=== PATIENT | male | born 1950 | race African-American/Black ===

== ENCOUNTER 2016-06-19 07:44 | Emergency (ER) | payer OTHER ==
[~2016-06-19] VITALS: Ht 172.7 cm; Wt 68.0 kg
[~2016-06-19 07:44] MED LIST: ACETAMINOPHEN325 M1 PO; ACYCLOVIR 200200 MG PO; ACYCLOVIR 400400 MG PO; AZITHROMYCIN 2250 MG PO; BACTRIM 400-801 EACH PO; BACTRIM DS TAB1 EACH PO; CARVEDILOL12.5 MG PO; COLACE100 MG PO; FINASTERIDE5 MG PO; LEVAQUIN 500 M500 MG PO; MEDROLDOSEPACK PO; MYFORTIC PO; MYFORTIC360 MG PO; MYSOLINE50 MG PO; NORCO 5-325 TA1 EACH PO; OSELB75 PO; PREDNISONE 10 M10 M1 PO; PREDNISONE 10 M10 MG PO; PREDNISONE 20 M20 MG PO; PROGRAF1 MG PO; RAPAFLO8 MG PO; TOBRAMYCIN SULFA5 ML IO; TYLENOL EXTRA500 MG PO; VERAPAMIL E.R240 M1 PO; VERAPAMIL ER240 MG PO; VITAMIN D2000 UNIT PO
[2016-06-19] MEDS ORDERED: PROAIR HFA8.5 GM INH (09:02)
[2016-06-19] MEDS ORDERED: PREDNISONE 20 M20 MG PO (09:02)
[2016-06-19] MEDS ORDERED: LEVAQUIN 500 M500 M1 PO (09:02)
== END 2016-06-19 09:33 | disposition home or self-care (01) ==
LOC: ER 07:44
DX: J18.9 Pneumonia, unspecified organism (principal); I12.9 Hypertensive chronic kidney disease with stage 1 through stage 4 chronic kidney disease, or unspecified chronic kidney disease; N18.3 Chronic kidney disease, stage 3 (moderate); Z88.6 Allergy status to analgesic agent; F10.99 Alcohol use, unspecified with unspecified alcohol-induced disorder

== ENCOUNTER 2016-12-07 09:10 | Emergency (ER) | payer OTHER ==
[~2016-12-07] VITALS: Ht 175.3 cm; Wt 71.7 kg
[~2016-12-07 09:10] MED LIST changes: +LEVAQUIN 500 M500 M1 PO; +PROAIR HFA8.5 GM INH
== END 2016-12-07 10:19 | disposition home or self-care (01) ==
LOC: ER 09:10
DX: H11.32 Conjunctival hemorrhage, left eye (principal); D86.0 Sarcoidosis of lung; I12.9 Hypertensive chronic kidney disease with stage 1 through stage 4 chronic kidney disease, or unspecified chronic kidney disease; N18.3 Chronic kidney disease, stage 3 (moderate); F10.99 Alcohol use, unspecified with unspecified alcohol-induced disorder; Z88.6 Allergy status to analgesic agent

== ENCOUNTER 2017-03-22 17:39 | Emergency (ER) | payer OTHER ==
[~2017-03-22] VITALS: Ht 172.7 cm; Wt 73.5 kg
[2017-03-22] MEDS ORDERED: NORCO 5-325 TA1 EACH PO (19:24)
== END 2017-03-22 19:48 | disposition home or self-care (01) ==
LOC: ER 17:39
DX: M79.671 Pain in right foot (principal); I12.9 Hypertensive chronic kidney disease with stage 1 through stage 4 chronic kidney disease, or unspecified chronic kidney disease; N18.3 Chronic kidney disease, stage 3 (moderate); D86.9 Sarcoidosis, unspecified; F10.99 Alcohol use, unspecified with unspecified alcohol-induced disorder; Z88.6 Allergy status to analgesic agent

== ENCOUNTER 2017-07-06 14:03 | Emergency (ER) | payer OTHER ==
[~2017-07-06] VITALS: Ht 172.7 cm; Wt 71.7 kg
[2017-07-06] MEDS ORDERED: BACTRIM DS TAB1 EACH PO (14:33)
[2017-07-06 15:16] LABS: URINE BILIRUBIN NEGATIVE (Negative); URINE BLOOD NEGATIVE (Negative); URINE CLARITY CLEAR; URINE COLOR YELLOW; URINE GLUCOSE-RANDOM* NEGATIVE (Negative); URINE KETONES NEGATIVE (Negative); URINE NITRITE-REFLEX NEGATIVE (Negative); URINE PROTEIN (DIPSTICK) 1+ (Negative); URINE SPECIFIC GRAVITY 1.025 (1.005-1.035); URINE UROBILINOGEN 0.2 E.U./dl (0.2-1.0)
[2017-07-06 15:28] LABS: URINE LEUKOCYTES-REFLEX TRACE (Negative)
[2017-07-06 15:29] LABS: HEMATOCRIT 27.5 % (42.0-52.0); HEMOGLOBIN 8.8 gm/dL (14.0-18.0); MCH 25.4 pg (26.0-34.0); MCV 79.2 fL (80.0-100.0); PLATELET COUNT 139 thou/uL (150-400); RBC 3.48 mil/uL (4.50-6.00); RDW 18.4 % (10.5-14.5); WBC 2.5 thou/uL (4.0-11.0)
[2017-07-06 15:29] LABS: SQUAMOUS 0-3 Few /LPF (0-3)
[2017-07-06 15:30] LABS: BACTERIA-REFLEX 1-9 Few /HPF (None Seen); CASTS None Seen /LPF (None Seen); CRYSTALS None Seen /LPF (None Seen); URINE RBC None Seen /HPF (0-2); URINE WBC-REFLEX 0-5 Rare /HPF (0-5)
[2017-07-06 15:40] LABS: CALCIUM 8.5 mg/dL (8.5-10.1); POTASSIUM 4.6 mmol/L (3.5-5.1)
[2017-07-06 15:52] LABS: METAMYELOCYTES 2 %; PLATELET ESTIMATE SLIGHTLY DECREASED
[2017-07-06 15:53] LABS: ANISOCYTOSIS 1+; LARGE PLATELETS OCCASIONAL; MICROCYTES 1+
[2017-07-06 15:54] LABS: HYPOCHROMASIA 1+
[2017-07-06 18:04] VITALS: BP 133/79
[2017-09-28] MEDS ORDERED: AZITHROMYCIN 2250 MG PO (23:47)
[2017-11-15] MEDS ORDERED: CARVEDILOL25 MG PO (12:39)
[2017-11-15] MEDS ORDERED: IMDUR 30 MG TAB30 M1 PO (12:39)
[2017-11-15] MEDS ORDERED: HYDRALAZINE 5050 MG PO (12:39)
[2017-11-15] MEDS ORDERED: DEMADEX20 MG PO (12:39)
== END 2017-07-06 18:05 | disposition home or self-care (01) ==
LOC: ER 14:03
PROVIDERS: Emergency Medicine
DX: K56.600 Partial intestinal obstruction, unspecified as to cause (principal); I12.9 Hypertensive chronic kidney disease with stage 1 through stage 4 chronic kidney disease, or unspecified chronic kidney disease; N18.3 Chronic kidney disease, stage 3 (moderate); Z88.6 Allergy status to analgesic agent

== ENCOUNTER 2018-01-25 00:58 | Inpatient (IN) | payer OTHER ==
[~2018-01-25] VITALS: Ht 175.3 cm; Wt 75.9 kg
[2018-01-25] VITALS (17 sets, daily range): BP systolic 55–136; BP diastolic 21–93
--- NOTE | ~2018-01-25 | EKG ---
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1950 Requested By: Booker Llanes Order Number: [id number] MD: Measurements Intervals [place] Rate: 127 P: MA: QRS: -50 QRSD: 109 T: 98 QT: 332 QTc: 483 Interpretive Statements Junctional tachycardia Left anterior fascicular block Probable anteroseptal infarct, old Nonspecific T abnormalities, lateral leads Compared to ECG 01/25/2018 01:06:41 Junctional tachycardia now present Left anterior fascicular block now present Myocardial infarct finding now present T-wave abnormality now present Sinus rhythm no longer present [email or web address] By: 1456 1456 [place], [place] /KARTHIKEYAN
--- NOTE | ~2018-01-25 | EKG ---
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
--- NOTE | ~2018-01-25 | HC ---
[facility] [place] [address] CONSULTATION Name: MARK GALINDO Room #: 239-P [facility] IN M.R.#: [id number] Admission: 01/25/18 Attend Phys: Jonny Shaikh MD Discharge: Date of : 50 Report #: [id number] THIS REPORT FOR: //name// CC: Ruddy GONZALES unknown Jonny Llanes TYPE OF REPORT: Pulmonary critical care consultation. REFERRING PHYSICIAN: Dr. Yony Hernandez. REASON FOR REFERRAL: Acute respiratory failure. HISTORY OF PRESENT ILLNESS: The patient is a 68-year-old -Cymro male who presents to the Emergency Room with dyspnea. He was in severe distress when he arrived. He was subsequently intubated. A pulmonary consultation was requested. The patient has a complicated history. 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 He has chronic kidney disease, stage 5. He is mainly followed at [facility] Nephrology Department. He also has followed at [facility] Pulmonary Department once a year. He has had several hospitalizations over the past year at [facility], last one being in November of 2017 for back pain. He was found to be in heart failure. He was in his usual state of health until about one day prior to presentation. The patient complained he was not feeling well. He felt weak, chills and diarrhea. He complained of muscle aches and lack of appetite. The patient was felt to be febrile along with chills. A week ago, he underwent hemorrhoidectomy with a wart removal at [facility]. Currently, he is intubated, profoundly hypotensive and hypoxic. 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 PAST SURGICAL HISTORY: As mentioned above including bilateral herniorrhaphy. [facility] [address] [place] [address] CONSULTATION Name: GALINDOMARK Room #: 239-P [facility] IN M.R.#: [id number] Admission: 01/25/18 Attend Phys: Jonny Shaikh MD Discharge: Date of : 50 Report #: [id number] ALLERGIES: None but ASPIRIN causes interaction with some of the antirejection medications along with ibuprofen, which also interacts with antirejection medications. CURRENT MEDICATIONS: From home included Zithromax, silodosin 1 tablet once a day, Bactrim-DS 1 tablet p.o. every other day, tacrolimus 2.5 caps p.o. b.i.d., hydrocodone 5/325 every 4 hours p.r.n., acyclovir 200 mg p.o. b.i.d. and prednisone 10 mg once a day. FAMILY HISTORY: Noncontributory. SOCIAL HISTORY: The patient denies any tobacco use. He does drink socially. He is . REVIEW OF SYSTEMS: Deferred as the patient is intubated. PHYSICAL EXAMINATION: GENERAL: He appears to be moderately distressed, tachypneic, on a mechanical ventilator. VITAL SIGNS: Temperature is 101.7 degrees Fahrenheit, pulse is 100, respiratory rate is 24, blood pressure remains very labile at 98/72 mmHg and saturation 99%. HEENT: Normocephalic and atraumatic. He is orally intubated. NECK: Supple, without any lymphadenopathy or thyromegaly. CHEST: Breath sounds are coarse bilaterally. No wheezes. CARDIOVASCULAR: No obvious murmurs or gallop. Pulses are decreased bilaterally. GENITOURINARY: Deferred. RECTAL: Deferred. ABDOMEN: Soft. No masses felt. GENITOURINARY: Deferred. RECTAL: Deferred. EXTREMITIES: No cyanosis, clubbing or edema. NEUROLOGICAL: Deferred as the patient is sedated. RADIOLOGICAL DATA: Portable chest x-ray on admission following intubation showed a mild right upper lobe infiltrates and mild interstitial changes are seen bilaterally. Previous CT chest angiogram noted showing thickened bronchial airways and mild interstitial changes. EKG shows no acute ischemic changes. A 2D echocardiogram revealed grossly normal left ventricular function, ejection fraction 45%, right ventricle grossly normal, dilated left and right atrium, mild aortic regurgitation. Pulmonary artery pressure around 40-45 mmHg. No pericardial effusion. LABORATORY DATA: Procalcitonin level 141. Lactic acid is 6.3. Sodium 138, potassium 4.1, chloride 104, CO2 is 15, creatinine is 6.3 and BUN is 80. Liver enzymes are moderately abnormal. WBC was 600; hemoglobin 7.2; hematocrit 22.[address] [address] CONSULTATION Name: MARK GALINDO Room #: 239-[facility] IN M.R.#: [id number] Admission: 01/25/18 Attend Phys: Jonny Shaikh MD Discharge: Date of : 50 Report #: [id number] and platelets are 90,000. Albumin 1.8. Troponin 0.3. Initial arterial blood gas revealed pH 7.32, pCO2 of 24 and pO2 249. IMPRESSION: 1. Acute hypoxic respiratory failure in this 68-year-old -Cymro male with a history of bilateral lung transplantation, history of sarcoidosis stage 4. Chest x-ray on admission revealed a right upper lobe infiltrates. He is now profoundly hypotensive. Procalcitonin level was markedly elevated along with marked metabolic acidosis. He has chronic kidney disease at stage 5. Suspect very severe sepsis, presumably due to pneumonia, though presentation is disproportionate with profound hypotension. Perhaps there may be other confounding factors contributing to the critical illness. Notably, the patient is immunosuppressed. Cannot rule out other opportunistic infection. The patient has also been on chronic corticosteroids, which may suggest adrenal insufficiency resulting in severe circulatory shock. Other source for severe sepsis cannot be ruled out including intra-abdominal processes. He was recently admitted for small-bowel obstruction. 2. Right upper lobe infiltrate, presumed pneumonia, possible aspiration. 3. Acute kidney injury/chronic kidney disease. Over the past several hours, he has been oliguric. 4. Profound metabolic acidosis due to shock. 5. Profound neutropenia, presumably due to severe infection and sepsis, severe protein-calorie malnutrition. 6. Pulmonary hypertension due to above processes. 7. Cardiomyopathy, ejection fraction 45%. 8. History of anemia. 9. History of hypertension. DISCUSSION AND RECOMMENDATIONS: Over the course of the day, the patient has been very unstable. He remained quite hypotensive requiring 3 multiple vasopressors. He remains progressively acidotic. He is oliguric. The patient had at least to cardiac events so far resulting in asystole x 2. He was resuscitated. He appeared to respond to epinephrine. The patient remained unstable, now with progressive hypoxia along with hypercapnia. Chest x-ray now shows dense right-sided airspace infiltrates occupying approximately 70% of the right lung, small infiltrates in the left lung field. CT of the abdomen and pelvis, CT head was also performed. Results are pending. Over the course of time, the patient's hypoxia has progressively worsened on FiO2 100%, pO2 is now only 45 mmHg. He remained acidotic with pH of 7.14. The patient remains on multiple vasopressors. He remains oliguric. The patient also received stress dose hydrocortisone since admission. [address] [address] CONSULTATION Name: MARK GALINDO Room #: 239-[facility] IN M.R.#: [id number] Admission: 01/25/18 Attend Phys: Jonny Shaikh MD Discharge: Date of : 50 Report #: [id number] Suspect profound sepsis from presumably pneumonia. Unclear if there is other ongoing process such as intra-abdominal infection or ischemia. This is now more than 11 years post-lung transplantation and is unclear if the transplanted lung is now rejecting. With the patient's severe comorbid conditions as mentioned above including renal failure, now with profound sepsis and shock with worsening multisystem organ failure, overall prognosis felt to be grim. We will continue supportive care, vasopressors, mechanical ventilator support and broad-spectrum antibiotics. At this time, the patient is too unstable for transfer to a tertiary facility such as ECMO. We will discuss with family. Thank you for this consultation. CRITICAL CARE TIME: One hour and additional 30 minutes. <ELECTRONICALLY SIGNED> By: Booker Llanes MD 01/26/18 1656 1711 0540 Booker Llanes MD /nt
--- NOTE | ~2018-01-25 | HC ---
[facility] [place] [address] CONSULTATION Name: MARK GALINDO Room #: 239-P ADM IN M.R.#: [id number] Admission: 01/25/18 Attend Phys: Jonny Shaikh MD Discharge: Date of : 50 Report #: [id number] THIS REPORT FOR: //name// CC: Ruddy Garzon FAM unknown Jonny Llanes DATE OF SERVICE: 01/25/2018 REASON FOR CONSULTATION: Chronic kidney disease and septic shock. HISTORY OF PRESENT ILLNESS: The patient is known to our service from a previous hospitalization here in November of this year. He is known to have a lung transplant since I believe 2006 due to sarcoidosis. He has chronic calcineurin toxicity with a baseline creatinine that was about 5 two months ago. He was slated for followup in our office for preparation for end-stage renal disease therapy. It is unclear as to whether he followed up or not. The patient had been doing reasonably well apparently in the hospital at [facility] for some treatment for genital warts and then was doing reasonably well. Did not go to work, had chills, fever, poor appetite, became lethargic, mental status changes, came to the Emergency Room here overnight and was found to have extreme leukopenia requiring aggressive treatment for septic shock, very low blood pressures, etc., quite neutropenic and his serum creatinine, which had been 5.0 at discharge 2 months ago was up to 6.3 and now 5.8 with decreased urine output. PAST MEDICAL HISTORY: He had the lung transplant as mentioned, chronic kidney disease as mentioned, on immunosuppressives, some history of small-bowel obstruction in the past. FAMILY HISTORY: Positive for hypertension. SOCIAL HISTORY: Apparently not a cigarette smoker or drug user. REVIEW OF SYSTEMS: Cannot be taken due to the patient being comatose on the ventilator, intubated in the ICU. PHYSICAL EXAMINATION: GENERAL: This is an ill-appearing gentleman on the ventilator, unresponsive. SKIN: Warm and dry. SKELETAL: Shows him to be well developed, well nourished. HEENT: There is some hemorrhage in his right eye. Endotracheal tube in place. NECK: Supple. CHEST: Shows rhonchi with occasional wheeze more on the right than the left. [facility] [address] [place] [address] CONSULTATION Name: MARK GALINDO Room #: 239-[facility] IN .R.#: [id number] Admission: 01/25/18 Attend Phys: Jonny Shaikh MD Discharge: Date of : 50 Report #: [id number] HEART: Regular, distant. ABDOMEN: Soft, nontender, quiet. EXTREMITIES: Show no edema. They are warm. Pulses diminished. LABORATORY DATA: Hemoglobin 7.6, white count is only 0.5 and he has got only 12% segs on that, platelets 95,000. INR 1.3. Sodium is 138, potassium 5.2, chloride 106, bicarbonate 18, creatinine 5.8, BUN 77. ASSESSMENT: 1. Septic shock. Immunocompromised neutropenic patient with fever and septic shock, being aggressively treated with IV fluids, on multiple high dose pressors with inadequate blood pressure and inadequate systemic perfusion. Due to the inadequate blood pressure and decreased urine output, survival will be somewhat difficult. We will certainly treat aggressively for septic shock. CRRT may or may not be introduced depending on if we can stabilize his condition otherwise with fluids, etc. 2. Neutropenia with fever and the patient immunocompromised from a lung transplant on 2 drug immunosuppression. 3. History of lung transplant in 2006. 4. Chronic kidney disease stage 5 with previous advice for preparation for end-stage renal disease treatment thought due to calcineurin toxicity. 5. Recent procedures for genital warts. <ELECTRONICALLY SIGNED> By: Art Rivas MD 01/26/18 1159 0844 1052 Art Rivas MD /nt
--- NOTE | ~2018-01-25 | 2DMMODE ---
[facility] [place] [address] 2 D/M-MODE ECHOCARDIOGRAM Name: MARK GALINDO Room #: 239-P [facility] IN .R.#: [id number] Admission: 01/25/18 Attend Phys: Jonny Shaikh MD Discharge: Date of : 50 Date of Service: 01/25/18 1222 Report #: [id number] THIS REPORT FOR: //name// APPROVED REPORT Study performed: 01/25/2018 07:57:17 EXAM: Limited 2D, Doppler, and color-flow Echocardiogram Patient Location: ER BSA: 1.81 HR: 103 bpm BP: 61/39 mmHg Rhythm: Tachycardia Indications Short of breath. Hx: CHF, PHTN, HTN, sarcoidosis, lung transplant. (Complete echo done 11/12/17) Aortic Valve AoV Peak Chato.: 1.54 m/s AO Peak Gr.: 9.46 mmHg Mitral Valve E/A Ratio: 2.4 MV Decel. Time: 142.72 ms MV E Max Chato.: 1.23 m/s MV A Chato.: 0.52 m/s MV PHT: 41.39 ms IVRT: 71.51 ms Tricuspid Valve TR Peak Chato.: 2.77 m/s RAP Estimate: 10.00 mmHg TR Peak Gr.: 30.70 mmHg PA Pressure: 41.00 mmHg Left Ventricle Left ventricular size appears to be grossly within normal dimensions Left ventricular systolic function is mild to moderately decreased. LVEF is 45%. Severe diastolic dysfunction is present (restrictive filling). Right Ventricle Right ventricle is grossly normal in size. [facility] [address] [place] [address] 2 D/M-MODE ECHOCARDIOGRAM Name: MARK GALINDO Room #: 239-P [facility] IN .R.#: [id number] Admission: 01/25/18 Attend Phys: Jonny Shaikh MD Discharge: Date of : 50 Date of Service: 01/25/18 1222 Report #: [id number] Left atrium is dilated. Right atrium is dilated. Aortic Valve The Aortic valve is sclerotic. Mild aortic regurgitation. There is no aortic valvular stenosis. Mitral Valve The mitral valve is normal in structure. Mild mitral regurgitation. Tricuspid Valve The tricuspid valve is normal in structure. Mild to moderate tricuspid regurgitation. Estimated PAP is 40-45mmHg. Great Vessels IVC is dilated and collapses >50% with inspiration. Pericardium There is no pericardial effusion. <Conclusion> Left ventricular size appears to be grossly within normal dimensions Left ventricular systolic function is mild to moderately decreased. LVEF is 45%. Right ventricle is grossly normal in size. Left atrium is dilated. Right atrium is dilated. The Aortic valve is sclerotic. Mild aortic regurgitation. The mitral valve is normal in structure. Mild mitral regurgitation. The tricuspid valve is normal in structure. Mild to moderate tricuspid regurgitation. Estimated PAP is 40-45mmHg. There is no pericardial effusion. <ELECTRONICALLY SIGNED> By: Jaleel Cullen MD 01/25/181221 21 21 Jaleel Cullen MD /INF
--- NOTE | ~2018-01-25 | HC ---
[facility] [address] [address] CONSULTATION Name: MARK GALINDO Room #: 239-P [facility] IN M.R.#: [id number] Admission: 01/25/18 Attend Phys: Jonny Shaikh MD Discharge: Date of : 50 Report #: [id number] THIS REPORT FOR: //name// CC: Ruddy Garzon FAM unknown Jonny Llanes DATE OF SERVICE: 01/25/2018 TYPE OF REPORT: Infectious diseases consultation. REASON FOR CONSULTATION: I was asked to evaluate concerning septic shock and respiratory failure in the setting of lung transplantation. HISTORY OF PRESENT ILLNESS: The patient was a 68-year old 10 years out from bilateral lung transplant on 3-drug immunosuppression. He has been doing well with his transplant with no recent episodes of rejection or opportunistic infections. Six days ago, underwent hemorrhoidectomy at [facility]. Actually doing reasonably well following this with pain controlled. He has had persistent diarrhea since then, however. With this, he has had anorexia without significant abdominal pain. No report of blood. No nausea or vomiting. He has had no cough or sputum production. No pleuritic chest pain. He has had decreased urine output. It is noted that he has chronic kidney disease with a baseline creatinine around 4. He had been seen by the Nephrology service. He has had no change in his immunosuppression. No recent travel. Other family members have been without illness. The patient noted yesterday morning, the patient was sleeping more than normal. He did awaken and was stating that he just did not feel well. He spent most of the day in bed. Subsequently, later on that evening, he began to become more short of breath, was brought into the Emergency Room where he was found to be hypoxic. Developed respiratory failure, was intubated, placed on mechanical ventilation. Minimal tracheal secretions were identified. Cultures were obtained. He did have some incontinence of stool prior to his arrival. REVIEW OF SYSTEMS: The patient was intubated and sedated, on vasopressors, unable to give any details. I did discuss history with nursing staff as well as the patient's at the bedside. She was able to give his history, noting no other positive review of systems from 10-point review. PAST MEDICAL HISTORY: Stage 4 sarcoidosis following bilateral lung transplant in 2006, hypertension, bilateral herniorrhaphy, chronic kidney disease, DVT, congestive heart failure, pulmonary hypertension, mitral regurgitation, known cardiomyopathy, microcytic anemia, osteoporosis with compression fractures, humerus fracture and recent small-bowel obstruction several months ago. [address] [address] CONSULTATION Name: MARK GALINDO Room #: 239-P [facility] IN [facility]#: [id number] Admission: 01/25/18 Attend Phys: Jonny Shaikh MD Discharge: Date of : 50 Report #: [id number] ALLERGIES: ASPIRIN and IBUPROFEN. MEDICATIONS: A 10 mg of prednisone a day, tacrolimus, Rapaflo, acyclovir, Bactrim, azithromycin, vitamin D and hydrocodone. FAMILY HISTORY: Noncontributory. SOCIAL HISTORY: Nonsmoker. No significant alcohol intake. PHYSICAL EXAMINATION: VITAL SIGNS: The patient was on 3 vasopressors including dopamine, Levophed and vasopressin, FiO2 100%. He was unarousable. Heart rate 107 and blood pressure 80/50 with a MAP of 49. Minimal urine output. Right subclavian catheter recently placed was unremarkable. GENERAL: He was orally intubated with an OG tube in place. Indwelling Hernandez catheter. SKIN: No rash or decubiti. HEENT: Eyes, mild conjunctivitis in the right. Naris unremarkable. Mouth unremarkable with no lesions. NECK: Supple, with no mass, adenopathy or JVD. LUNGS: Coarse bilaterally. Most predominantly with consolidation on the right posterior chest. HEART: Tachycardic and regular. No appreciable murmur, gallop or rub. ABDOMEN: Soft. No hepatosplenomegaly or mass appreciated. GENITOURINARY: External genitalia with indwelling Hernandez catheter. Had fullness in the left inguinal region. RECTAL: With shallow ulcerations from his hemorrhoidectomy. No fluctuance or abscess palpable. EXTREMITIES: Without edema. NEUROLOGICAL: The patient did move all extremities and withdrawal to pain. RADIOLOGICAL DATA: Chest x-ray with right lung upper lobe infiltrate. LABORATORY DATA: Lactate 2.4. Procalcitonin 167. ABG on 80%, FiO2 showed a pO2 of 81, pCO2 of 43, pH 7.18 and bicarbonate is 16. Sodium 138, potassium 5.2, bicarbonate 18 and creatinine 5.8. Hemoglobin 7.6; platelet count 95,000 and WBC 0.5. INR 1.3. Troponin 0.3. Urinalysis pending. Blood cultures pending. Sputum culture pending. Urine antigens pending. IMPRESSION: 1. A 68-year old with septic shock, respiratory failure, acute renal failure, oliguric. 2. Pancytopenia with metabolic acidosis. 3. Suspect opportunistic versus aspiration-type pneumonia. Still possible healthcare-associated pneumonia following his surgical procedure. [facility] [address] [place] [address] CONSULTATION Name: MARK GALINDO Room #: 239-P [facility] IN Willie.#: [id number] Admission: 01/25/18 Attend Phys: Jonny Shaikh MD Discharge: Date of : 50 Report #: [id number] 4. Diarrhea, ongoing for the last week. Likely a component to his dehydration and acute renal failure. Cause of which is yet to be determined whether bacterial, parasitic, opportunistic infection or Clostridium difficile colitis related to his antibiotics given at the time of his surgery. 5. Recent hemorrhoidectomy, possible surgical site infection, although could find no purulent drainage on examination. 6. Pancytopenia with profound neutropenia contributing likely due to profound sepsis. 7. Ytcnz-hv-sjoygtj kidney disease with oliguria. 8. Encephalopathy, toxic metabolic in nature. 9. Underlying sarcoidosis. RECOMMENDATIONS: We will continue full ICU support for septic shock. Await echocardiogram. CT scan of the chest, abdomen and pelvis. Await blood, urine and sputum cultures. Check stool for bacterial pathogens, ova and parasite and C. difficile. Obtain serologic studies and evaluate pneumonia for virus, bacteria, fungus and AFB. We will continue with broad antibiotic coverage for virus, bacteria and fungus. Give Neupogen. Await imaging studies and initial response to fluids and vasopressors. Have adjusted his antibiotics for his renal failure. May need to consider a bronchoscopy if pulmonary infiltrates progress. [place] is very poor given his profound immunosuppression and multiorgan system failure. I have discussed with nursing staff, Nephrology and the patient's family. <ELECTRONICALLY SIGNED> By: Ruddy Garzon MD 01/26/18 1415 [id number] Ruddy Garzon MD /nt
--- NOTE | ~2018-01-25 | EKG ---
[place] [address] 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 : 1950 Requested By: Booker Llanes Order Number: [id number] MD: Enrique Nguyen Measurements Intervals [place] Rate: 127 P: DC: QRS: -50 QRSD: 109 T: 98 QT: 332 QTc: 483 Interpretive Statements Supraventricular tachycardia Left anterior fascicular block Probable anteroseptal infarct, old Nonspecific ST segment abnormality Compared to ECG 01/25/2018 01:06:41 Septal Q waves are more prominent Electronically Signed On 01-25-2018 17:09:39 CDT by Enrique Nguyen [email or web address] <ELECTRONICALLY SIGNED> By: Enrique Nguyen MD, [facility] 01/25/18 1709 1456 [id number] Enrique Nguyen MD, [facility] /EPI
--- NOTE | ~2018-01-25 | EKG ---
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: Carie ROGERS : 1950 Requested By: Jonny Shaikh Order Number: [id number] MD: Enrique Nguyen Measurements Intervals [place] Rate: 137 P: [place]: QRS: -37 QRSD: 102 T: 94 QT: 330 QTc: 499 Interpretive Statements Supraventricular tachycardia Left axis deviation Nonspecific ST segment abnormality Borderline prolonged QT interval Compared to ECG 01/25/2018 01:06:41 Supraventricular tachycardia is now present Electronically Signed On 01-25-2018 17:06:30 CDT by Enrique Nguyen [email or web address] <ELECTRONICALLY SIGNED> By: Enrique Nguyen MD, [facility] 01/25/18 [id number] 1144 Enrique Nguyen MD, [facility] /EPI
[~2018-01-25 00:58] MED LIST changes: +CARVEDILOL25 MG PO; +DEMADEX20 MG PO; +HYDRALAZINE 5050 MG PO; +IMDUR 30 MG TAB30 M1 PO
[2018-01-25 01:25] LABS: BE(vivo) -12.1 mmol/L (-2 to +3); HCO3 12.6 mmol/L (22.0-26.0); PCO2 24.6 mmHg (35.0-45.0); PO2 249.2 mmHg (80.0-100.0); pH 7.326 (7.360-7.450); sO2 99.5 % (92.0-98.0)
[2018-01-25 01:37] LABS: HEMATOCRIT 22.6 % (42.0-52.0); HEMOGLOBIN 7.2 gm/dL (14.0-18.0); MCH 25.9 pg (26.0-34.0); PLATELET COUNT 90 thou/uL (150-400); RBC 2.78 mil/uL (4.50-6.00); RDW 17.4 % (10.5-14.5)
[2018-01-25 01:44] LABS: CREATININE 6.3 mg/dL (0.7-1.3); POTASSIUM 4.1 mmol/L (3.5-5.1)
[2018-01-25] MEDS ORDERED: PROGRAF1 MG PO ×2 (01:45)
[2018-01-25 01:46] LABS: WBC 0.6 thou/uL (4.0-11.0)
[2018-01-25] MEDS ORDERED: HYDROCODON-ACE1 EAC7 PO (01:53)
[2018-01-25] MEDS ORDERED: ALFUZOSIN HCL10 MG PO (01:54)
[2018-01-25 02:23] LABS: ABSOLUTE NEUTROPHILS 0.1 thou/uL (1.4-8.2); ANISOCYTOSIS 1+; LARGE PLATELETS SEVERAL; PLATELET ESTIMATE DECREASED
[2018-01-25 03:18] LABS: BE(vivo) -13.6 mmol/L (-2 to +3); PCO2 33.2 mmHg (35.0-45.0); PO2 157.3 mmHg (80.0-100.0); sO2 98.7 % (92.0-98.0)
[2018-01-25 03:19] LABS: pH 7.212 (7.360-7.450)
[2018-01-25 04:21] LABS: APTT 37.1 Seconds (24.5-32.8); FIBRINOGEN 406.5 mg/dL (210-360); INR 1.3; PROTIME 13.4 Seconds (9.3-11.4)
[2018-01-25 05:47] LABS: MCHC 31.8 g/dL (28.0-37.0); RDW 18.3 % (10.5-14.5)
[2018-01-25 05:49] LABS: HEMOGLOBIN 7.6 gm/dL (14.0-18.0); MCV 81.8 fL (80.0-100.0); RBC 2.93 mil/uL (4.50-6.00)
[2018-01-25 05:54] LABS: CALCIUM 7.2 mg/dL (8.5-10.1); CREATININE 5.8 mg/dL (0.7-1.3); WBC 0.5 thou/uL (4.0-11.0)
[2018-01-25 05:55] LABS: PLATELET COUNT 95 thou/uL (150-400)
[2018-01-25 05:57] LABS: POTASSIUM 5.2 mmol/L (3.5-5.1)
[2018-01-25 05:58] LABS: BE(vivo) -11.6 mmol/L (-2 to +3); PCO2 43.8 mmHg (35.0-45.0)
[2018-01-25 08:53] LABS: ANISOCYTOSIS 2+; HYPOCHROMASIA 1+; LARGE PLATELETS MANY; METAMYELOCYTES 4 %; MYELOCYTES 1 %; NUCLEATED RBCS 3 /100WBC; PLATELET ESTIMATE DECREASED
[2018-01-25 09:38] LABS: BE(vivo) -12.8 mmol/L (-2 to +3); HCO3 15.4 mmol/L (22.0-26.0); PCO2 46.4 mmHg (35.0-45.0); sO2 73.7 % (92.0-98.0)
[2018-01-25 09:39] LABS: PO2 50.1 mmHg (80.0-100.0)
[2018-01-25 11:31] LABS: BE(vivo) -6.3 mmol/L (-2 to +3); PCO2 60.5 mmHg (35.0-45.0); PO2 68.7 mmHg (80.0-100.0); sO2 88.6 % (92.0-98.0)
[2018-01-25 11:32] LABS: pH 7.178 (7.360-7.450)
[2018-01-25 12:05] LABS: HEMOGLOBIN 7.2 gm/dL (14.0-18.0); MCHC 31.9 g/dL (28.0-37.0); MCV 81.7 fL (80.0-100.0); RBC 2.76 mil/uL (4.50-6.00)
[2018-01-25 12:07] LABS: HEMATOCRIT 22.5 % (42.0-52.0); MCH 26.1 pg (26.0-34.0); RDW 18.1 % (10.5-14.5)
[2018-01-25 12:10] LABS: CALCIUM 7.9 mg/dL (8.5-10.1); CREATININE 5.6 mg/dL (0.7-1.3); POTASSIUM 5.2 mmol/L (3.5-5.1)
[2018-01-25 12:11] LABS: WBC 0.8 thou/uL (4.0-11.0)
[2018-01-25 12:18] LABS: ALBUMIN 1.8 g/dL (3.4-5.0); TOTAL BILIRUBIN 0.8 mg/dL (<0.1-1.0); TOTAL PROTEIN 3.9 g/dL (6.4-8.2)
[2018-01-25 12:23] LABS: TROPONIN-I 0.84 ng/mL (<0.06)
[2018-01-25 13:01] LABS: HCO3 19.6 mmol/L (22.0-26.0); PCO2 44.6 mmHg (35.0-45.0); sO2 83.8 % (92.0-98.0)
[2018-01-25 13:02] LABS: PO2 54.8 mmHg (80.0-100.0); pH 7.261 (7.360-7.450)
[2018-01-25 15:05] LABS: BE(vivo) -9.8 mmol/L (-2 to +3); HCO3 18.6 mmol/L (22.0-26.0); PCO2 55.3 mmHg (35.0-45.0); sO2 78.4 % (92.0-98.0)
[2018-01-25 15:06] LABS: PO2 54.9 mmHg (80.0-100.0); pH 7.144 (7.360-7.450)
[2018-01-25 15:10] LABS: HEMATOCRIT 22.5 % (42.0-52.0); HEMOGLOBIN 7.1 gm/dL (14.0-18.0); MCH 25.8 pg (26.0-34.0); MCHC 31.6 g/dL (28.0-37.0); MCV 81.9 fL (80.0-100.0); RBC 2.75 mil/uL (4.50-6.00); RDW 18.3 % (10.5-14.5)
[2018-01-25 15:19] LABS: CALCIUM 6.9 mg/dL (8.5-10.1); CREATININE 6.1 mg/dL (0.7-1.3); POTASSIUM 4.8 mmol/L (3.5-5.1); WBC 1.1 thou/uL (4.0-11.0)
[2018-01-25 15:27] LABS: ALBUMIN 1.6 g/dL (3.4-5.0); TOTAL BILIRUBIN 1.1 mg/dL (<0.1-1.0); TOTAL PROTEIN 3.5 g/dL (6.4-8.2)
[2018-01-25 15:29] LABS: TROPONIN-I 1.01 ng/mL (<0.06)
[2018-01-25 15:34] LABS: FIBRINOGEN 147.5 mg/dL (210-360); PROTIME 32.4 Seconds (9.3-11.4)
[2018-01-25 15:36] LABS: APTT 68.1 Seconds (24.5-32.8); INR 3.2
[2018-01-25 16:05] LABS: BE(vivo) -8.3 mmol/L (-2 to +3); HCO3 18.9 mmol/L (22.0-26.0); PCO2 47.4 mmHg (35.0-45.0); sO2 72.1 % (92.0-98.0)
[2018-01-25 16:06] LABS: PO2 45.3 mmHg (80.0-100.0); pH 7.218 (7.360-7.450)
[2018-01-25 16:12] LABS: ALBUMIN 1.6 g/dL (3.4-5.0); DIRECT BILIRUBIN 0.8 mg/dL (<0.1-0.3); TOTAL BILIRUBIN 1.2 mg/dL (<0.1-1.0); TOTAL PROTEIN 3.5 g/dL (6.4-8.2)
[2018-01-25 19:13] LABS: URINE BILIRUBIN NEGATIVE (Negative); URINE BLOOD 2+ (Negative); URINE CLARITY CLEAR; URINE COLOR YELLOW; URINE GLUCOSE-RANDOM* NEGATIVE (Negative); URINE KETONES NEGATIVE (Negative); URINE LEUKOCYTES-REFLEX NEGATIVE (Negative); URINE NITRITE-REFLEX NEGATIVE (Negative); URINE PROTEIN (DIPSTICK) 2+ (Negative); URINE UROBILINOGEN 0.2 E.U./dl (0.2-1.0)
[2018-01-25 19:25] LABS: BACTERIA-REFLEX 1-9 Few /HPF (None Seen); CASTS None Seen /LPF (None Seen); CRYSTALS None Seen /LPF (None Seen); SQUAMOUS None Seen /LPF (0-3); URINE RBC 3-10 Few /HPF (0-2); URINE WBC-REFLEX 0-5 Rare /HPF (0-5)
[2018-01-25 19:31] LABS: BE(vivo) -9.3 mmol/L (-2 to +3); HCO3 16.9 mmol/L (22.0-26.0); PCO2 37.9 mmHg (35.0-45.0); sO2 79.6 % (92.0-98.0)
[2018-01-25 19:32] LABS: PO2 49.2 mmHg (80.0-100.0); pH 7.267 (7.360-7.450)
[2018-01-26 04:09] LABS: RDW 18.9 % (10.5-14.5)
[2018-01-26 04:10] LABS: ALBUMIN 1.5 g/dL (3.4-5.0); MAGNESIUM 1.2 mg/dL (1.8-2.4); PHOSPHORUS 9.6 mg/dL (2.5-4.9); POTASSIUM 4.8 mmol/L (3.5-5.1); TOTAL BILIRUBIN 1.9 mg/dL (<0.1-1.0); TOTAL PROTEIN 3.5 g/dL (6.4-8.2)
[2018-01-26 04:13] LABS: HEMATOCRIT 25.8 % (42.0-52.0); HEMOGLOBIN 8.1 gm/dL (14.0-18.0); MCH 26.1 pg (26.0-34.0); MCHC 31.5 g/dL (28.0-37.0); MCV 82.8 fL (80.0-100.0); RBC 3.12 mil/uL (4.50-6.00)
[2018-01-26 04:18] LABS: CALCIUM 5.9 mg/dL (8.5-10.1); WBC 0.9 thou/uL (4.0-11.0)
[2018-01-26 05:16] LABS: PLATELET COUNT 48 thou/uL (150-400)
[2018-01-26 05:27] LABS: ABSOLUTE NEUTROPHILS 0.1 thou/uL (1.4-8.2); CORRECTED WBC 0.6 thou/uL (4.0-11.0); NUCLEATED RBCS 49 /100WBC; PLATELET ESTIMATE DECREASED
[2018-01-26 05:28] LABS: ANISOCYTOSIS 2+; LARGE PLATELETS SEVERAL; POLYCHROMASIA 1+
[2018-01-26 05:35] LABS: BE(vivo) -15.4 mmol/L (-2 to +3); HCO3 13.6 mmol/L (22.0-26.0); PCO2 45.6 mmHg (35.0-45.0); PO2 59.1 mmHg (80.0-100.0)
[2018-01-26 05:36] LABS: pH 7.091 (7.360-7.450)
[2018-01-26 08:13] LABS: BE(vivo) -14.6 mmol/L (-2 to +3); HCO3 13.7 mmol/L (22.0-26.0); PCO2 42.4 mmHg (35.0-45.0); PO2 71.3 mmHg (80.0-100.0); pH 7.127 (7.360-7.450); sO2 88.7 % (92.0-98.0)
[2018-01-27 23:07] LABS: ADENOVIRUS Negative (Negative); INFLUENZA A Negative (Negative); INFLUENZA B Negative (Negative); METAPNEUMOVIRUS Negative (Negative); PARAINFLUENZA 1 Negative (Negative); PARAINFLUENZA 2 Negative (Negative); PARAINFLUENZA 3 Negative (Negative); RHINOVIRUS Negative (Negative); RSV A Negative (Negative); RSV B Negative (Negative)
== END 2018-01-26 18:00 | DRG 871 ==
LOC: ER 00:58 → ICU 02:43 → EROBS 02:43 → ICU 03:18
PROVIDERS: Emergency Medicine; Hospitalist; Internal Medicine Nephrology; Internal Medicine Pulmonary Disease; Nurse Practitioner Family
PROC: 5A1945Z Respiratory Ventilation, 24-96 Consecutive Hours (ICD-10-PCS; principal; 2018-01-25)
PROC: 0BH17EZ Insertion of Endotracheal Airway into Trachea, Via Natural or Artificial Opening (ICD-10-PCS; principal; 2018-01-25)
PROC: 4A133B1 Monitoring of Arterial Pressure, Peripheral, Percutaneous Approach (ICD-10-PCS; principal; 2018-01-25)
PROC: 4A133J1 Monitoring of Arterial Pulse, Peripheral, Percutaneous Approach (ICD-10-PCS; principal; 2018-01-25)
PROC: 03HY32Z Insertion of Monitoring Device into Upper Artery, Percutaneous Approach (ICD-10-PCS; principal; 2018-01-25)
PROC: 02HV33Z Insertion of Infusion Device into Superior Vena Cava, Percutaneous Approach (ICD-10-PCS; 2018-01-25)
DX: A41.9 Sepsis, unspecified organism (principal); J18.9 Pneumonia, unspecified organism; R65.21 Severe sepsis with septic shock; J96.01 Acute respiratory failure with hypoxia; G92 Toxic encephalopathy; I42.9 Cardiomyopathy, unspecified; N18.5 Chronic kidney disease, stage 5; N17.9 Acute kidney failure, unspecified; D61.818 Other pancytopenia; K56.609 Unspecified intestinal obstruction, unspecified as to partial versus complete obstruction; A04.72 Enterocolitis due to Clostridium difficile, not specified as recurrent; Z94.2 Lung transplant status; I13.0 Hypertensive heart and chronic kidney disease with heart failure and stage 1 through stage 4 chronic kidney disease, or unspecified chronic kidney disease; I50.9 Heart failure, unspecified; I27.20 Pulmonary hypertension, unspecified; M81.0 Age-related osteoporosis without current pathological fracture; R19.7 Diarrhea, unspecified; I95.9 Hypotension, unspecified; R74.0 Nonspecific elevation of levels of transaminase and lactic acid dehydrogenase [LDH]; D86.9 Sarcoidosis, unspecified; G89.29 Other chronic pain; D50.9 Iron deficiency anemia, unspecified; Z79.899 Other long term (current) drug therapy; M54.9 Dorsalgia, unspecified; Z86.718 Personal history of other venous thrombosis and embolism; Z88.6 Allergy status to analgesic agent; Z87.81 Personal history of (healed) traumatic fracture; Z82.49 Family history of ischemic heart disease and other diseases of the circulatory system; Z95.828 Presence of other vascular implants and grafts
CPT/HCPCS: 10078; 85026